=== PATIENT | female | born 2000 | race Two or more races ===

== ENCOUNTER 2024-05-19 11:33 | Emergency (ER) | payer OTHER ==
[~2024-05-19] VITALS: Ht 165.1 cm; Wt 68.0 kg
[2024-05-19] MEDS ORDERED: METOCLOPRAMIDE HCL 5 MG/ML VIAL IM STA (12:55)
[2024-05-19] MEDS ORDERED: hydrOXYzine PAMOATE 25 MG CAPSULE PO STA (12:55)
[2024-05-19] MEDS ORDERED: KETOROLAC TROMETHAMINE 60 MG VIAL IM STA (12:55)
[2024-05-19] MEDS ORDERED: KETOROLAC TROMETHAMINE 60 MG VIAL IM ONE (13:03)
[2024-05-19] MEDS ORDERED: hydrOXYzine PAMOATE 25 MG CAPSULE PO ONE (13:03)
[2024-05-19] MEDS ORDERED: METOCLOPRAMIDE HCL 5 MG/ML VIAL ONE (13:04)
== END 2024-05-19 14:04 | disposition home or self-care (01) ==
LOC: ER 11:34
DX: R53.81 Other malaise (principal); G44.209 Tension-type headache, unspecified, not intractable

== ENCOUNTER 2025-01-28 18:11 | Emergency (ER) | payer OTHER ==
[~2025-01-28] VITALS: Ht 165.1 cm; Wt 68.0 kg
[2025-01-28 18:52] VITALS: BP 128/85; O2SAT 99
[2025-01-28] MEDS ORDERED: PANTOPRAZOLE SODIUM 40 MG/VIAL VIAL IV STA (20:18)
[2025-01-28] MEDS ORDERED: levoFLOXacin IN DEXTROSE 5 % 500MG/100ML PIGGYBAG IV STA (20:19)
[2025-01-28] MEDS ORDERED: DEXAMETHASONE SODIUM PHOSPHATE 4 MG/ML VIAL IV STA (20:19)
[2025-01-28] MEDS ORDERED: 0.9 % SODIUM CHLORIDE 500 ML IV SCH (20:30)
[2025-01-28] MEDS ORDERED: MORPHINE SULFATE 4 MG/ML CARTRIDGE IV STA (20:54)
[2025-01-28] MEDS ORDERED: levoFLOXacin IN DEXTROSE 5 % 500MG/100ML PIGGYBAG IV ONE (21:07)
[2025-01-28] MEDS ORDERED: DEXAMETHASONE SODIUM PHOSPHATE 4 MG/ML VIAL ONE (21:07)
[2025-01-28 21:48] LABS: BASO % 0.7 % (0.1-1.2); EOS # 0.42 (0.04-0.54); EOS % 5.1 % (0.7-7.0); LYMPH # 2.24 (1.18-3.74); LYMPH % 27.4 % (19.3-53.1); MEAN PLATELET VOLUME 9.40 fl (9.4-12.4); MONO # 0.54 (0.24-0.82); MONO % 6.6 % (4.7-12.5); NEUT # 4.91 (1.56-6.13); NEUT % 60.0 % (34.0-71.1); RED CELL DISTRIBUTION WIDTH 12.4 % (11.6-14.4)
[2025-01-28 22:13] LABS: COVID-19 AG NEGATIVE (NEGATIVE)
[2025-01-28 22:25] LABS: BUN CREA RATIO 19.0 (7.0-25.0); CREATININE SERUM 0.62 mg/dL (0.55-1.02); GFR 119.28; GLUCOSE FASTING 98.0 mg/dL (65-100); OSMOLALITY SERUM 283.0 MOSM/KG (275-295)
[2025-01-28 23:47] LABS: URINE APPEARANCE Clear; URINE BILIRRUBIN Negative (NEGATIVE); URINE BLOOD Large; URINE COLOR Yellow; URINE GLUCOSE Negative (NEGATIVE); URINE KETONE Negative (NEGATIVE); URINE LEUKOCYTE Negative; URINE NITRATE Negative; URINE PROTEIN Negative (NEGATIVE); URINE UROBILINOGEN 0.2 E.U./dl
[2025-01-28 23:51] LABS: URINE BACTERIA 49.1 uL (0.0-1933); URINE EPITHELIAL CELLS 6.2 uL (0.0-38.8); URINE RBC 12.8 uL (0.0-20.8); URINE WBC 7.8 uL (0.0-23.2)
[2025-01-28 23:53] LABS: URINE CAST 0.00 uL (0.0-1.40)
== END 2025-01-29 00:42 | disposition home or self-care (01) ==
LOC: ER 18:12
PROVIDERS: General Practice
DX: R10.32 Left lower quadrant pain (principal); K21.9 Gastro-esophageal reflux disease without esophagitis; Z20.822 Contact with and (suspected) exposure to COVID-19